=== PATIENT | male | born 1975 | race Caucasian/White ===

== ENCOUNTER 2018-02-26 02:23 | Emergency (ER) | payer OTHER ==
[~2018-02-26] VITALS: Ht 193 cm; Wt 123.6 kg
[2018-02-26 05:53] VITALS: BP 117/87
== END 2018-02-26 05:54 | disposition home or self-care (01) ==
LOC: EME 02:23
DX: M25.562 Pain in left knee (principal)
CPT/HCPCS: 73564; 93971; 99281; 99283